=== PATIENT | male | born 1945 | race Caucasian/White ===

== ENCOUNTER 2023-05-31 10:45 | Outpatient (CLI) | payer MEDICARE, OTHER | END 2023-05-31 10:46 | disposition home or self-care (01) | LOC: CSHCP 10:45 | PROVIDERS: ATTEND Physician Assistant | DX: R06.02 Shortness of breath (principal); J44.9 Chronic obstructive pulmonary disease, unspecified | CPT/HCPCS: 94060; 94726; 94729; 94760 ==

== ENCOUNTER 2024-04-02 10:22 | Outpatient (CLI) | payer MEDICARE ==
[~2024-04-02 10:22] MED LIST: Iopamidol 370 76% 100 ML VIAL ONE
== END 2024-04-02 10:23 | disposition home or self-care (01) ==
LOC: CSHCT 10:22
PROVIDERS: ATTEND Thoracic Surgery (Cardiothoracic Vascular Surgery)
DX: Z95.2 Presence of prosthetic heart valve (principal); Z98.890 Other specified postprocedural states; K55.069 Acute infarction of intestine, part and extent unspecified; I72.4 Aneurysm of artery of lower extremity; I70.203 Unspecified atherosclerosis of native arteries of extremities, bilateral legs; I77.1 Stricture of artery
CPT/HCPCS: 75635; 82565; Q9967